=== PATIENT | female | born 1960 | race Two or more races ===

== ENCOUNTER → 2025-01-12 | Outpatient (CLI) | payer MEDICARE, BC, SELFPAY ==
--- NOTE | 2025-01-12 08:13 | XR_ITS ---
Examination: PA lateral chest 2 views TECHNIQUE: Upright PA lateral chest 2 views Exam date and time: October 12, 2025 0823 hours INDICATIONS: Coughing beginning 2 weeks ago. FINDINGS: Normal heart size. Lungs are clear. Moderate osteopenia IMPRESSION: No active disease
[2025-01-12 09:38] LABS: HCG,Qualitative Serum Negative
[2025-01-12 09:43] LABS: Glucose Estimated Average 143 mg/dL (80-131); Hemoglobin A1C 6.6 % Hgb (4.8-6.0)
[2025-01-12 09:53] LABS: Alanine Aminotransferase 13 U/L (10-49); Albumin, Serum 4.1 gm/dL (3.4-4.8); Albumin/Globulin Ratio 1.7 (1.2-2.2); Alkaline Phosphatase 52 U/L (46-116); Anion Gap 6 (7-16); Aspartate Amino Transferase 18 U/L (0-34); BUN/Creatinine Ratio 20 Ratio (12-20); Bilirubin,Total 1.2 mg/dL (0.3-1.2); Blood Urea Nitrogen 16 mg/dL (9-23); Calcium 9.8 mg/dL (8.3-10.6); Calcium (Corrected) 9.8 mg/dL (8.5-10.1); Carbon Dioxide 31.6 mMol/L (20.0-31.0); Cardiac Risk Estimate 2.8 RATIO (3.7-5.6); Chloride 100 mMol/L (98-107); Cholesterol 142 mg/dL (132-200); Creatinine (Component) 0.8 mg/dL (0.6-1.3); Free T4 (Free Thyroxine) 1.72 ng/dL (0.89-1.76); Globulin 2.4 gm/dL (2.3-3.5); Glucose 121 mg/dL (74-106); HDL Cholesterol 51 mg/dL (40-60); LDL Cholesterol,Calculated 60 mg/dL (0-130); Osmolality,Calculated 277 (275-295); Potassium 4.3 mMol/L (3.4-5.1); Sodium 138 mMol/L (136-145); Thyroid Stimulating Hormone 0.12 uIU/mL (0.55-4.78); Total Protein 6.5 gm/dL (5.7-8.2); Triglycerides 157 mg/dL (30-150); eGFR > 60 See Note
[2025-01-12 11:33] LABS: Basophils # (Auto) 0.1 Thou/mm3 (0.0-0.2); Basophils % (Auto) 1 % (0-2.5); Eosinophils # (Auto) 0.2 Thou/mm3 (0.0-0.5); Eosinophils % (Auto) 2 % (0-10); Hematocrit 33.6 % (36.0-46.0); Hemoglobin 11.3 g/dL (12.0-16.0); Immature Granulocytes % (Auto) 1 % (0-0); Immature Granulocytes Auto 0.04 Thou/mm3 (0.00-0.00); Lymphocytes # (Auto) 2.4 Thou/mm3 (1.0-4.8); Lymphocytes % (Auto) 28 % (10-50); Mean Corpuscular HGB Conc 33.6 g/dl (31.0-37.0); Mean Corpuscular Hemoglobin 28.3 pg (25.0-35.0); Mean Corpuscular Volume 84 fL (80-100); Monocytes # (Auto) 0.5 Thou/mm3 (0.0-0.8); Monocytes % (Auto) 6 % (0-12); Neutrophils # (Auto) 5.3 Thou/mm3 (1.8-7.7); Neutrophils % (Auto) 62 % (37-80); Nucleated Red Blood Cell % 0 /100 WBC (0); Platelet Count 398 Thou/mm3 (140-440); RDW Standard Deviation 39.8 fL (36.4-46.3); White Blood Count 8.5 Thou/mm3 (3.6-11.0)
== END | disposition home or self-care (01) ==
LOC: CDIM 08:02 → COPL 08:36
PROVIDERS: Referring Provider Internal Medicine; Visit Provider Internal Medicine
DX: R05.9 Cough, unspecified (principal); I10 Essential (primary) hypertension; E78.5 Hyperlipidemia, unspecified; E03.9 Hypothyroidism, unspecified; E11.9 Type 2 diabetes mellitus without complications
CPT/HCPCS: 36415; 71046; 80053; 80061; 83036; 84439; 84443; 84703; 85025

== ENCOUNTER 2025-04-12 12:32 | Emergency (ER) | payer MEDICARE, BC, SELFPAY ==
[2025-04-12 12:38] VITALS: BP 92/60; PULSE 72; RESP 18; TEMP 36.8; O2SAT 99
--- NOTE | 2025-04-12 12:47 | EKG_ITS ---
[facility] Test Date: 2025-04-12 Pat Name: WHIT BOOKER Department: Room: - Gender: Female Ui Programmer: : 1960 Requested By: Alexandru Le Order Number: [id number] Reading MD: Alexandru Le Measurements Intervals Check Rate: 70 P: 178 PA: 150 QRS: 174 QRSD: 92 T: 172 QT: 386 QTc: 419 Interpretive Statements ECTOPIC ATRIAL RHYTHM WITH OCCASIONAL VENTRICULAR PREMATURE COMPLEXES POSSIBLE RIGHT VENTRICULAR HYPERTROPHY [SOME/ALL OF: PROMINENT R IN V1, LATE TRANSITION, RAD, JOANN, SSS] LATERAL MYOCARDIAL INFARCTION , OF INDETERMINATE AGE [40+ ms Q WAVE AND/OR ST/T ABNORMALITY IN I/aVL/V5/V6] No previous ECG available for comparison /[id number]/S0/[id number].pdf
--- NOTE | 2025-04-12 12:48 | EDNOTE_ITS ---
ED General RME/HPI General Chief complaint: Weakness Stated complaint: WEAKNESS Time Seen by Provider: 04/12/25 12:47 Arrival date/time: 04/12/25 12:32 CC: Lightheaded and dizziness HPI patient was washing her laundry when she became lightheaded and dizzy, patient states she recently had medicine change from olmesartan amlodipine HCTZ to doxazosin olmesartan HCTZ. Since the change approximately 4 days ago patient states she has been feeling crummy , including mild nausea fatigue lack of energy. Today she denies passing out, states that she went to [facility] washed her car and then came home doing the light laundry when she became lightheaded and dizzy. EMS report soft blood pressure of 107 systolic, currently she is 90/20 denies any dizziness or but complains of mild lightheadedness. Patient is awake alert oriented nontoxic-appearing Old medication olmesartan amlodipine hydrochlorothiazide 40-10-25 New medication doxazosin 1 mg New medication olmesartan hydrochlorothiazide 40?25 Related Data Allergies Allergy/AdvReac Type Severity Reaction Status Date / Time No Known Allergies Allergy Verified 01/02/24 09:23 Review of Systems Review of Systems Narrative Review of Systems: GEN: No fever, no chills, no weight loss EYES: No discharge, no visual changes, no pain HEENT: No ear pain, no congestion, no sore throat PULM: No shortness of breath, no cough, no congestion CV: No chest pain, no dyspnea on exertion, no palpitations GI: No nausea, no vomiting, no diarrhea, no pain, no constipation : No frequency, no urgency, no dysuria MUSC/SKEL: No joint pain, no back pain SKIN: No rash PSYCH: No hallucinations, no depression HEME/LYMPH: No easy bleeding or bruising tendencies NEURO: No weakness, no headache Past Medical History Social History SMOKING STATUS: Current every day smoker ED Exam Narrative Physical exam: [General: Not in any acute distress Head normocephalic HEENT: Within acceptable limits Neck is supple nontender Chest equal chest rise nontender to palpation Respiratory: Clear to auscultation no wheezes crackles or rubs CV: Rate rhythm is regular no murmurs rubs or clicks Abdomen is soft nontender no masses positive bowel sounds all 4 quadrants Back: No CVA tenderness no spinous process tenderness from cervical spine thoracic and lumbar spine Skin: Intact no petechiae rash induration ulceration or crepitus Extremities: Moving all extremity against resistance cap refill less than 2 seconds neurosensory intact Neuro: Awake alert oriented x3 Glascow coma 15 no focal deficits] Course Course Course Narrative: Patient reassessed at 1615, the patient is ambulating without complication no lightheaded or dizziness after 1 L of fluid pressures are 131/70, I suspect the patient had a hypotensive episode secondary to medication that was recently changed for her hypertension. Patient advised to take a 1/4 tablet monitor pressures to make sure she has no lightheaded or dizziness, reasonable blood pressures, and no fluid accumulation in her ankles. Patient is in agreement with this plan. She is to do this until she is seen by her PCP. Quality Measures none Orders Category Date Time Status EKG (ED ONLY) *Do not use* NOW Care 04/12/25 12:47 Completed EKG (ED Only) Stat Exams 04/12/25 12:47 Draft B-Type Natriuretic Peptide Stat Lab 04/12/25 14:03 Completed CBC Stat Lab 04/12/25 13:26 Completed Comprehensive Metabolic Panel Stat Lab 04/12/25 14:03 Completed Drug Screen,Urine Stat Lab 04/12/25 14:53 Completed LDH (Lactate Dehydrogenase) Stat Lab 04/12/25 14:03 Completed Magnesium Stat Lab 04/12/25 14:03 Completed Partial Thromboplastin Time Stat Lab 04/12/25 13:26 Completed Prothrombin Time with INR Stat Lab 04/12/25 13:26 Completed Troponin I Stat Lab 04/12/25 14:03 Completed Urinalysis Stat Lab 04/12/25 14:53 Received Sodium Chloride 0.9% 1000 ml [Ns] 1,000 ml Med 04/12/25 14:15 Discontinued IV 999 mls/hr Vital Signs Vital signs: Vital Signs Temperature 98.2 F 04/12/25 12:38 Pulse Rate 72 04/12/25 12:38 Respiratory Rate 18 04/12/25 12:38 Blood Pressure 92/60 04/12/25 12:38 Pulse Oximetry (%) 99 04/12/25 12:38 Oxygen Delivery Method Room Air 04/12/25 12:38 Discharge Plan Plan Patient Disposition: HOME (Self Care) Patient condition on transfer: Stable Prescriptions/Referrals Referrals: Breezy Perez MD [Primary Care Provider] - In 1 week Problem List Clinical Impression: Drug-induced hypotension Patient/Caregiver Discharge Instructions Education Materials: ED Low Blood Pressure, All Causes Additional Instructions: Take one quarter of the pills each day throw away all your old medications, monitor your blood pressure on a daily basis follow-up with your primary care provider for discussions about adjustments of the medications. If there is a worsening of his symptoms in spite of the medications return to the emergency room for reevaluation. Print Language: Kinyarwanda Stand Alone Forms: Marilee Award Info., Patient Portal Info Letter PA/SEARCH STRATEGIST Supervising Physician PA/SEARCH STRATEGIST Supervising Physician: Alexandru Cox EnP [facility] Clinical Information Provided by: patient and EMS Medical Records reviewed [facility] and EMS Meds/Rx considered, not ordered None Labs/Rad/Tests considered, not ordered None Chronic Illness/Social Conditions Explain: Hypertension EKG EKG not done EKG Interpretation EKG #1: EKG Interpretation: EKG performed at 1343 shows ventricular rate of 70 PA interval 150 QRS of 92 QTc of 407 back in atrial rhythm. Medication Administration(s) Medication Administration History Discontinued Medications Sodium Chloride (Ns) 1,000 mls @ 999 mls/hr IV .Q1H1M ONE Stop: 04/12/25 15:15 Last Admin: 04/12/25 14:44 Dose: 999 mls/hr Documented By: DANICA
[2025-04-12 13:00] VITALS: PULSE 71; RESP 20; O2SAT 97; BMI 4218.0
[2025-04-12 13:12] VITALS: BP 109/53; PULSE 77; RESP 18; O2SAT 98
[2025-04-12 13:33] LABS: Basophils # (Auto) 0.1 Thou/mm3 (0.0-0.2); Basophils % (Auto) 1 % (0-2.5); Eosinophils # (Auto) 0.2 Thou/mm3 (0.0-0.5); Eosinophils % (Auto) 1 % (0-10); Hematocrit 31.5 % (36.0-46.0); Hemoglobin 10.8 g/dL (12.0-16.0); Immature Granulocytes % (Auto) 1 % (0-0); Immature Granulocytes Auto 0.06 Thou/mm3 (0.00-0.00); Lymphocytes % (Auto) 15 % (10-50); Mean Corpuscular HGB Conc 34.3 g/dl (31.0-37.0); Mean Corpuscular Hemoglobin 26.6 pg (25.0-35.0); Mean Corpuscular Volume 78 fL (80-100); Monocytes # (Auto) 0.8 Thou/mm3 (0.0-0.8); Monocytes % (Auto) 6 % (0-12); Neutrophils # (Auto) 10.1 Thou/mm3 (1.8-7.7); Neutrophils % (Auto) 76 % (37-80); Nucleated Red Blood Cell % 0 /100 WBC (0); Platelet Count 377 Thou/mm3 (140-440); RDW Standard Deviation 40.4 fL (36.4-46.3); Red Blood Count 4.06 Miln/mm3 (4.00-5.20); White Blood Count 13.3 Thou/mm3 (3.6-11.0)
[2025-04-12 14:00] LABS: INR 1.1 (0.9-1.3); Partial Thromboplastin Time 22.4 Seconds (22.0-36.0); Prothrombin Time 11.5 Seconds (9.0-12.2)
[2025-04-12 14:26] LABS: B-Type Natriuretic Peptide < 20 pg/mL (0-100)
[2025-04-12 14:27] LABS: Alanine Aminotransferase 13 U/L (10-49); Albumin, Serum 4.2 gm/dL (3.4-4.8); Albumin/Globulin Ratio 1.6 (1.2-2.2); Alkaline Phosphatase 64 U/L (46-116); Anion Gap 8 (7-16); Aspartate Amino Transferase 18 U/L (0-34); BUN/Creatinine Ratio 16 Ratio (12-20); Bilirubin,Total 1.4 mg/dL (0.3-1.2); Blood Urea Nitrogen 16 mg/dL (9-23); Calcium 8.9 mg/dL (8.3-10.6); Calcium (Corrected) 8.9 mg/dL (8.5-10.1); Carbon Dioxide 29.1 mMol/L (20.0-31.0); Chloride 98 mMol/L (98-107); Estimated Creatinine Clearance 43.4 mL/min (>60); Globulin 2.6 gm/dL (2.3-3.5); Glucose 153 mg/dL (74-106); LDH (Lactate Dehydrogenase) 110 U/L (120-246); Magnesium 1.4 mg/dL (1.6-2.6); Osmolality,Calculated 274 (275-295); Potassium 4.2 mMol/L (3.4-5.1); Sodium 135 mMol/L (136-145); Total Protein 6.8 gm/dL (5.7-8.2); Troponin I < 0.020 ng/mL (0.0-0.045); eGFR > 60 See Note
[2025-04-12] MEDS: SODIUM CHLORIDE 0.9% 1000 ML 1,000 ML 999 ML IV (14:44)
[2025-04-12 15:04] LABS: Collection Type, Urine Clean Catch
[2025-04-12 15:11] LABS: Bacteria,Urine Rare; Bilirubin,Urine Negative (Negative); Blood,Urine Negative (Negative); Color,Urine Yellow (Lt Yel-Yel); Glucose, Urine Negative (Negative); Hyaline Casts,Urine 1 /hpf (0-1); Ketones,Urine Negative (Negative); Leukocyte Esterase,Urine Positive (Negative); Nitrite,Urine Negative (Negative); PH,Urine 5.5 (5.0-7.0); Protein,Urine 1+ (Neg - Trace); RBC,Urine 6 /hpf (0-3); Specific Gravity,Urine 1.025 (1.001-1.035); Squamous Epithelial Cell,Urine 1 /hpf (0-5); Urobilinogen,Urine Negative mg/dL (0.0-1.0); WBC,Urine 11 /hpf (0-5)
[2025-04-12 15:15] LABS: Amphetamine/Methamp Scrn,U Negative (Negative); Barbiturate Screen,Urine Negative (Negative); Benzodiazepines Screen,Urine Negative (Negative); Benzoylecgonine Screen, Ur Negative (Negative); Fentanyl Screen,Urine Negative (Negative); Opiate Screen,Urine Negative (Negative); THC Screen,Urine Positive (Negative)
[2025-04-12 15:35] VITALS: BP 117/59; PULSE 67; RESP 19; TEMP 36.6; O2SAT 97
[2025-04-12 16:38] LABS: Clarity,Urine Hazy (Clear/Hazy)
[2025-04-12 16:55] VITALS: BP 108/54; PULSE 66; RESP 20; TEMP 36.6; O2SAT 98
== END 2025-04-12 16:55 | disposition home or self-care (01) ==
PROVIDERS: Registered Nurse General Practice; Emergency Provider Emergency Medicine; PCP Internal Medicine
DX: I95.2 Hypotension due to drugs (principal)
CPT/HCPCS: 36415; 80053; 80307; 81001; 83615; 83735; 83880; 84484; 85025; 85610; 85730; 93005; 96360; 99284; J7030